=== PATIENT | female | born 1995 | race African-American/Black ===

== ENCOUNTER 2020-02-14 19:00 | Emergency (ER) | payer MEDICAID ==
[~2020-02-14] VITALS: Ht 162.6 cm; Wt 81.6 kg
--- NOTE | 2020-02-14 19:23 | NUR ---
Dr. Morgan at bedside for MSE
--- NOTE | 2020-02-14 19:28 | NUR ---
Patient discharged to home in stable condition. Written and verbal after care instructions given. Patient verbalizes understanding of instructions. Stressed follow up or return to ER for worsening s/s. aa/ox4. able to speak in complete sentences no s/s of distress ambulatory with steady gait all belongings with pt
[2020-02-14 19:30] VITALS: BP 109/60
== END 2020-02-14 19:31 | disposition home or self-care (01) ==
LOC: ER 19:03
DX: L24.89 Irritant contact dermatitis due to other agents (principal); Z86.69 Personal history of other diseases of the nervous system and sense organs
CPT/HCPCS: A4663